=== PATIENT | male | born 1935 ===

== ENCOUNTER 2017-09-05 17:32 | Inpatient (IN) | payer MEDICARE, MEDICAID ==
--- NOTE | 2017-09-05 17:56 | C.PDOC ---
History Of Present Illness Patient presents to ED c/o worsening SOB over the past 1 month. He was seen recently by PMD Dr. Acevedo, Lasix dose was increased from 40mg to 60mg. He states it has not improved his symptoms. Patient admits to dry cough, but denies chest pain, fever, abdominal pain, leg edema. PMHx of CHF, DM, COPD, HTN. Time Seen by Provider: 09/05/17 17:35 Chief Complaint (Nursing): Shortness Of Breath History Per: Patient History/Exam Limitations: no limitations Current Symptoms Are (Timing): Still Present Current Respiratory Medications: See Home Med List Severity: Moderate Past Medical History Reviewed: Historical Data, Nursing Documentation, Vital Signs Vital Signs: Last Vital Signs Temp 97.5 F L 09/09/17 08:19 Pulse 50 L 09/09/17 08:19 Resp 20 09/09/17 08:19 BP 127/85 09/09/17 08:19 Pulse Ox 100 09/09/17 08:19 - Medical History PMH: CHF, COPD, HTN, Hypothyroidism Surgical History: Pacemaker Family History: States: No Known Family Hx - Social History Hx Alcohol Use: No Hx Substance Use: No - Immunization History Hx Tetanus Toxoid Vaccination: No Review Of Systems Except As Marked, All Systems Reviewed And Found Negative. Constitutional: Negative for: Fever, Chills Cardiovascular: Negative for: Chest Pain, Palpitations Respiratory: Positive for: Cough (dry), Shortness of Breath, SOB with Excertion Gastrointestinal: Negative for: Nausea, Vomiting, Abdominal Pain, Diarrhea Skin: Negative for: Rash Neurological: Negative for: Weakness, Numbness Physical Exam - Physical Exam Appears: Well, Non-toxic, No Acute Distress, Other (speaking in full sentences) Oral Mucosa: Moist Chest: Symmetrical, Other (PPM left upper chest) Cardiovascular: Rhythm Regular Respiratory: No Accessory Muscle Use, Rales (B/L bases), No Rhonchi, No Wheezing Gastrointestinal/Abdominal: Normal Exam, Bowel Sounds, Soft, No Tenderness Extremity: Normal ROM, No Pedal Edema, No Calf Tenderness Pulses: Left Dorsalis Pedis: Normal, Right Dorsalis Pedis: Normal Neurological/Psych: Oriented x3 ED Course And Treatment - Laboratory Results Result Diagrams: 09/08/17 11:17 09/08/17 11:17 ECG: Interpreted By Me, Viewed By Me (ventricular paced rhythm 98 bpm, left axis deviation, no acute ST changes) ECG Interpretation: No Acute Changes O2 Sat by Pulse Oximetry: 94 (RA) Pulse Ox Interpretation: Normal (COPD history) - Radiology CXR: Interpreted by Me, Viewed By Me (B/L pulmonary vascular congestion, left sided effusion) Progress Note: Blood work, CXR, EKG ordered and reviewed. BP borderline - as per PMD, this is patient's baseline. No Lasix/nitro given due to BP. - Physician Consult Information Physician Contacted: Skip Acevedo Outcome Of Conversation: Discussed patient with PMD, agress with telemetry admission for acute CHF exacerbation. Disposition - Disposition Disposition: HOSPITALIZED Disposition Time: 19:33 Condition: STABLE - Clinical Impression Clinical Impression: CHF exacerbation, Dyspnea Decision To Admit - Pt Status Changed To: Hospital Disposition Of: Inpatient - Admit Certification Admit to Inpatient:: After my assessment, the patient will require hospitalization for at least two midnights. This is because of the severity of symptoms shown, intensity of services needed, and/or the medical risk in this patient being treated as an outpatient. - InPatient: Physician Admission Certification: I certify that this patient requires 2 or more midnights of care for the following reason:: see notes - . Bed Request Type: Telemetry Admitting Physician: Skip Acevedo Patient Diagnosis: CHF exacerbation, Dyspnea
[2017-09-05 18:29] LABS: BASO # 0.1 K/uL (0.0-0.2); BASO % 1.4 % (0.0-2.0); EOS # 0.2 K/uL (0.0-0.7); EOS % 3.7 % (0.0-4.0); LYMPH # 1.1 K/uL (1.0-4.3); LYMPH % 17.3 % (20.0-40.0); MEAN CELL VOLUME 85.8 fL (80.0-94.0); MEAN CORPUSCULAR HEMOGLOBIN 27.9 pg (27.0-31.0); MEAN CORPUSCULAR HGB CONC 32.5 g/dL (33.0-37.0); MEAN PLATELET VOLUME 7.1 fL (7.2-11.7); MONO # 0.6 K/uL (0.0-0.8); MONO % 8.4 % (0.0-10.0); RED CELL DISTRIBUTION WIDTH 14.5 % (11.5-14.5); WHITE BLOOD COUNT 6.6 K/uL (4.8-10.8)
[2017-09-05 18:47] LABS: CHLORIDE 99 mmol/L (98-107)
[2017-09-05 18:48] LABS: POTASSIUM 3.7 mmol/L (3.6-5.2); SODIUM 133 mmol/L (132-148)
[2017-09-05 18:50] LABS: ALB/GLOB RATIO 1.2 (1.0-2.1); ALKALINE PHOSPHATASE 79 U/L (38-126); AST/SGOT 34 U/L (17-59); BLOOD UREA NITROGEN 19 mg/dL (9-20); CARBON DIOXIDE 23 mmol/L (22-30); GFR AFRICAN-AMERICAN > 60; TOTAL PROTEIN 6.4 g/dL (6.3-8.3)
[2017-09-05 18:51] LABS: ALT/SGPT 36 U/L (21-72); CALCIUM 8.1 mg/dl (8.6-10.4); GLUCOSE,RANDOM 123 mg/dL (75-110)
--- NOTE | 2017-09-05 22:38 | CP.PCM.HP ---
History of Present Illness - History of Present Illness History of Present Illness: CC: shortness of breath HPI: elderly k[place] male with cardiomyopathy, CAD, s/p CABG, COPD,DM complaint with diet med fooloow up, pt is short of breath since few weeks and more on exertion Patient presents to ED c/o worsening SOB over the past 1 month. He was seen recently by me, Lasix dose was increased from 40mg to 60mg. He states it has not improved his symptoms. Patient admits to dry cough, but denies chest pain, fever, abdominal pain, leg edema. PMHx of CHF, DM, COPD, HTN. Present on Admission - Present on Admission Any Indicators Present on Admission: Yes Review of Systems - Review of Systems Systems not reviewed;Unavailable: Unstable Vital Signs - Constitutional Constitutional: Fatigue, Lethargy - Cardiovascular Cardiovascular: Dyspnea, Dyspnea on Exertion, Paroxysmal Nocturnal Dyspnea - Respiratory Respiratory: Cough, Dyspnea, Dyspnea on Exertion - Gastrointestinal Gastrointestinal: absent: As Per HPI, Abdominal Pain, Belching, Bloating, Change in Bowel Habits, Change in Stool Character, Coffee Ground Emesis, Constipation, Cramping, Diarrhea, Dyspepsia, Dysphagia, Early Satiety, Excessive Flatus, Fecal Incontinence, Heartburn, Hematemesis, Hematochezia, Loose Stools, Melena, Nausea, Odynophagia, Temesmus, Vomiting, Other - Genitourinary Genitourinary: absent: As Per HPI, Change in Urinary Stream, Difficulty Urinating, Dysuria, Flank Pain, Hematuria, Pyuria, Nocturia, Urinary Incontinence, Urinary Frequency, Urinary Hesitance, Urinary Urgency, Voiding Freq/Small Amts, Freq UTI, Hx Renal/Bladder Calculi, Hx /Renal Surgery, Bladder Distension, Other Past Patient History - Past Social History Smoking Status: Never Smoked - CARDIAC Hx Congestive Heart Failure: Yes Hx Hypertension: Yes Hx Pacemaker: Yes - PULMONARY Hx Chronic Obstructive Pulmonary Disease (COPD): Yes - ENDOCRINE/METABOLIC Hx Hypothyroidism: Yes - PSYCHIATRIC Hx Substance Use: No Meds Allergies/Adverse Reactions: Allergies Allergy/AdvReac Type Severity Reaction Status Date / Time No Known Allergies Allergy Unverified 09/03/13 16:20 Physical Exam - Constitutional Appears: No Acute Distress - Head Exam Head Exam: ATRAUMATIC, NORMAL INSPECTION, NORMOCEPHALIC - Eye Exam Eye Exam: EOMI, Normal appearance, PERRL Pupil Exam: NORMAL ACCOMODATION, PERRL - Respiratory Exam Respiratory Exam: Decreased Breath Sounds, Rales, Rhonchi - Cardiovascular Exam Cardiovascular Exam: REGULAR RHYTHM, +S1, +S2, Systolic Murmur Additional comments: s3 positive - GI/Abdominal Exam GI & Abdominal Exam: Normal Bowel Sounds, Soft. absent: Tenderness Results - Vital Signs Recent Vital Signs: Last Vital Signs Temp 97.5 F L 09/05/17 20:47 Pulse 98 H 09/05/17 22:35 Resp 20 09/05/17 22:35 BP 108/76 09/05/17 22:35 Pulse Ox 100 09/05/17 22:35 - Labs Result Diagrams: 09/05/17 18:21 09/06/17 16:43 Labs: Laboratory Results - last 24 hr 09/05/17 09/05/17 09/05/17 18:21 18:21 18:21 WBC 6.6 RBC 3.97 L Hgb 11.1 L Hct 34.0 L MCV 85.8 MCH 27.9 MCHC 32.5 L RDW 14.5 Plt Count 310 MPV 7.1 L Neut % (Auto) 69.2 Lymph % (Auto) 17.3 L Keith % (Auto) 8.4 Eos % (Auto) 3.7 Baso % (Auto) 1.4 Neut # 4.6 Lymph # 1.1 Keith # 0.6 Eos # 0.2 Baso # 0.1 PT 11.6 INR 1.0 APTT 30 Sodium 133 Potassium 3.7 Chloride 99 Carbon Dioxide 23 Anion Gap 16 BUN 19 Creatinine 1.1 Est GFR ( Amer) > 60 Est GFR (Non-Af Amer) > 60 Random Glucose 123 H Calcium 8.1 L Total Bilirubin 1.0 AST 34 ALT 36 Alkaline Phosphatase 79 Total Creatine Kinase 90 CK-MB (Mass) 1.74 Troponin I 0.0600 NT-Pro-B Natriuret Pep 7520 H Total Protein 6.4 Albumin 3.5 Globulin 2.9 Albumin/Globulin Ratio 1.2 Assessment & Plan (1) COPD (chronic obstructive pulmonary disease) Status: Acute (2) Diabetes Status: Acute (3) Pulmonary HTN Status: Acute (4) Systolic heart failure Status: Acute - Assessment and Plan (Free Text) Plan: detailed orders written admit pt seen and examined
[2017-09-06] MEDS: Levothyroxine 88 MCG TAB PO SCH (05:36)
[2017-09-06] MEDS: Albuterol-Ipratrop 3 mg / 0.5 (3 ml) UD INH SCH ×4 (05:51→20:01)
[2017-09-06] MEDS ORDERED: (Novolin N) Insulin Human Isophane (NPH) 100 u/ml 10 ml vial SC SCH (07:30)
--- NOTE | 2017-09-06 09:10 | RAD ---
PROCEDURE: CHEST RADIOGRAPH, 1 VIEW HISTORY: SOB COMPARISON: 11/14/2015 FINDINGS: LUNGS: Pulmonary edema, or likely cardiogenic. PLEURA: Bilateral pleural effusions. CARDIOVASCULAR: Cardiomegaly/CHF. OSSEOUS STRUCTURES: No significant abnormalities. VISUALIZED UPPER ABDOMEN: Normal. OTHER FINDINGS: None. IMPRESSION: Congestive heart failure/ pulmonary edema. New findings compared to the prior study 11/14/2015
[2017-09-06] MEDS ORDERED: CLOPIDOGREL 75 MG PO SCH (10:00)
[2017-09-06] MEDS ORDERED: ATORVASTATIN 20 MG PO SCH (10:00)
[2017-09-06] MEDS ORDERED: Enoxaparin 40 mg Syringe SC SCH (10:00)
[2017-09-06] MEDS ORDERED: LANTUS 10 UNIT SQ SCH (10:00)
[2017-09-06] MEDS ORDERED: (Lantus) Insulin Glargine, Recombinant SC SCH ×2 (10:00)
[2017-09-06] MEDS: guaiFENesin 600 mg ER Tab PO SCH ×2 (10:47→19:50)
[2017-09-06] MEDS: Metoprolol Succinate 50 mg XL Tab PO SCH (10:47)
[2017-09-06 12:06] LABS: ABG ALLEN TEST PO; ARTERIAL BLOOD HGB O2 SAT 95.7 % (95.0-98.0); CARBOXYHEMOGLOBIN 0.3 % (0.5-1.5); DRAW SITE LR; HHB 3.9 % (0.0-5.0); METHEMOGLOBIN 0.1 % (0.0-3.0)
[2017-09-06] MEDS: (Novolog) Insulin Aspart, Recombinant 100 u/ml 10 ml vial SC SCH ×4 (12:30→22:26)
[2017-09-06 17:03] LABS: BLOOD UREA NITROGEN 25 mg/dL (9-20); CALCIUM 8.1 mg/dl (8.6-10.4); CARBON DIOXIDE 25 mmol/L (22-30); CHLORIDE 96 mmol/L (98-107); GFR AFRICAN-AMERICAN > 60; GLUCOSE,RANDOM 212 mg/dL (75-110); POTASSIUM 4.2 mmol/L (3.6-5.2); SODIUM 132 mmol/L (132-148)
--- NOTE | 2017-09-06 17:28 | CP.PCM.CON ---
History of Present Illness - History of Present Illness History of Present Illness: h/o increased sob for several weeks cxr with pulmonary edema h/o pulmonary hypertention stable on bosentan for 8 yrs check echo may need a repeat right heart cath for medication adjustments Review of Systems - Constitutional Constitutional: Fatigue - Cardiovascular Cardiovascular: Dyspnea - Respiratory Respiratory: Dyspnea on Exertion Past Patient History - Past Medical History & Family History Past Medical History?: Yes - Past Social History Smoking Status: Never Smoked - CARDIAC Hx Congestive Heart Failure: Yes Hx Hypertension: Yes - PULMONARY Hx Chronic Obstructive Pulmonary Disease (COPD): Yes Other/Comment: pulmonary hypertention - NEUROLOGICAL Hx Neurological Disorder: No - HEENT Hx HEENT Problems: No - RENAL Hx Chronic Kidney Disease: No - ENDOCRINE/METABOLIC Hx Hypothyroidism: Yes - HEMATOLOGICAL/ONCOLOGICAL Hx Blood Disorders: No - INTEGUMENTARY Hx Dermatological Problems: No - MUSCULOSKELETAL/RHEUMATOLOGICAL Hx Musculoskeletal Disorders: No Hx Falls: No - GASTROINTESTINAL Hx Gastrointestinal Disorders: No - GENITOURINARY/GYNECOLOGICAL Hx Genitourinary Disorders: No - PSYCHIATRIC Hx Psychophysiologic Disorder: No Hx Substance Use: No - SURGICAL HISTORY Other/Comment: ppm implant - ANESTHESIA Hx Anesthesia: Yes Hx Anesthesia Reactions: No Hx Malignant Hyperthermia: No Has any member of the family had a problem w/ anesthesia?: No Meds Allergies/Adverse Reactions: Allergies Allergy/AdvReac Type Severity Reaction Status Date / Time No Known Allergies Allergy Unverified 09/03/13 16:20 - Medications Medications: Current Medications Albuterol/Ipratropium (Duoneb 3 Mg/0.5 Mg (3 Ml) Ud) 3 ml INH RQ6 [facility] Last Admin: 09/06/17 13:35 Dose: 3 ml Aspirin (Ecotrin) 81 mg PO DAILY [facility] Last Admin: 09/06/17 10:47 Dose: 81 mg Clopidogrel Bisulfate (Plavix) 75 mg PO DAILY [facility] Last Admin: 09/06/17 10:47 Dose: 75 mg Enoxaparin Sodium (Lovenox) 75 mg SC BID [facility] Furosemide (Lasix) 40 mg IVP BID [facility] Guaifenesin (Mucinex La) 600 mg PO BID [facility] Last Admin: 09/06/17 10:47 Dose: 600 mg Insulin Aspart (Novolog) 0 unit SC ACHS [facility] PRN Reason: Protocol Last Admin: 09/06/17 13:06 Dose: 4 unit Insulin Glargine (Lantus) 15 unit SC [facility] Levothyroxine Sodium (Synthroid) 88 mcg PO DAILY@0630 [facility] Last Admin: 09/06/17 05:36 Dose: 88 mcg Lisinopril (Zestril) 2.5 mg PO DAILY [facility] Last Admin: 09/06/17 10:47 Dose: 2.5 mg Metoprolol Succinate (Toprol Xl) 50 mg PO DAILY [facility] Last Admin: 09/06/17 10:47 Dose: 50 mg Rosuvastatin Calcium (Crestor) 10 mg PO [facility] Physical Exam - Constitutional Appears: Chronically Ill - Head Exam Head Exam: ATRAUMATIC, NORMOCEPHALIC - Eye Exam Eye Exam: Normal appearance - ENT Exam ENT Exam: Mucous Membranes Moist - Respiratory Exam Respiratory Exam: Decreased Breath Sounds, Rales - Cardiovascular Exam Cardiovascular Exam: REGULAR RHYTHM, +S1, +S2 - GI/Abdominal Exam GI & Abdominal Exam: Normal Bowel Sounds - Rectal Exam Rectal Exam: Deferred - Neurological Exam Neurological exam: Alert, Oriented x3 - Psychiatric Exam Psychiatric exam: Normal Affect, Normal Mood - Skin Skin Exam: Intact Results - Vital Signs Recent Vital Signs: Last Vital Signs Temp 97.7 F 09/06/17 15:59 Pulse 102 H 09/06/17 15:59 Resp 22 09/06/17 15:59 BP 93/64 L 09/06/17 15:59 Pulse Ox 97 09/06/17 15:59 - Labs Result Diagrams: 09/05/17 18:21 09/06/17 16:43 Labs: Laboratory Results - last 24 hr 09/05/17 09/05/17 09/05/17 18:21 18:21 18:21 WBC 6.6 RBC 3.97 L Hgb 11.1 L Hct 34.0 L MCV 85.8 MCH 27.9 MCHC 32.5 L RDW 14.5 Plt Count 310 MPV 7.1 L Neut % (Auto) 69.2 Lymph % (Auto) 17.3 L [place] % (Auto) 8.4 Eos % (Auto) 3.7 Baso % (Auto) 1.4 Neut # 4.6 Lymph # 1.1 [place] # 0.6 Eos # 0.2 Baso # 0.1 PT 11.6 INR 1.0 APTT 30 Puncture Site pCO2 pO2 HCO3 ABG pH ABG Total CO2 ABG O2 Saturation ABG Base Excess ABG Hemoglobin ABG Carboxyhemoglobin POC ABG HHb (Measured) ABG Methemoglobin Angel Test A-a O2 Difference Respiratory Index Hgb O2 Saturation Liter Flow FiO2 Sodium 133 Potassium 3.7 Chloride 99 Carbon Dioxide 23 Anion Gap 16 BUN 19 Creatinine 1.1 Est GFR ( Amer) > 60 Est GFR (Non-Af Amer) > 60 POC Glucose (mg/dL) Random Glucose 123 H Calcium 8.1 L Total Bilirubin 1.0 AST 34 ALT 36 Alkaline Phosphatase 79 Total Creatine Kinase 90 CK-MB (Mass) 1.74 Troponin I 0.0600 NT-Pro-B Natriuret Pep 7520 H Total Protein 6.4 Albumin 3.5 Globulin 2.9 Albumin/Globulin Ratio 1.2 09/06/17 09/06/17 09/06/17 06:44 11:20 11:59 WBC RBC Hgb Hct MCV MCH MCHC RDW Plt Count MPV Neut % (Auto) Lymph % (Auto) [place] % (Auto) Eos % (Auto) Baso % (Auto) Neut # Lymph # [place] # Eos # Baso # PT INR APTT Puncture Site Lr pCO2 31 L pO2 119 H HCO3 24.0 ABG pH 7.46 H ABG Total CO2 23.0 ABG O2 Saturation 96.1 ABG Base Excess -1.1 ABG Hemoglobin 12.1 ABG Carboxyhemoglobin 0.3 L POC ABG HHb (Measured) 3.9 ABG Methemoglobin 0.1 Angel Test Po A-a O2 Difference 70.0 Respiratory Index 0.6 Hgb O2 Saturation 95.7 Liter Flow 3.0 FiO2 32.0 Sodium Potassium Chloride Carbon Dioxide Anion Gap BUN Creatinine Est GFR ( Amer) Est GFR (Non-Af Amer) POC Glucose (mg/dL) 177 H 297 H Random Glucose Calcium Total Bilirubin AST ALT Alkaline Phosphatase Total Creatine Kinase CK-MB (Mass) Troponin I NT-Pro-B Natriuret Pep Total Protein Albumin Globulin Albumin/Globulin Ratio 09/06/17 09/06/17 16:37 16:43 WBC RBC Hgb Hct MCV MCH MCHC RDW Plt Count MPV Neut % (Auto) Lymph % (Auto) [place] % (Auto) Eos % (Auto) Baso % (Auto) Neut # Lymph # [place] # Eos # Baso # PT INR APTT Puncture Site pCO2 pO2 HCO3 ABG pH ABG Total CO2 ABG O2 Saturation ABG Base Excess ABG Hemoglobin ABG Carboxyhemoglobin POC ABG HHb (Measured) ABG Methemoglobin Angel Test A-a O2 Difference Respiratory Index Hgb O2 Saturation Liter Flow FiO2 Sodium 132 Potassium 4.2 Chloride 96 L Carbon Dioxide 25 Anion Gap 16 BUN 25 H Creatinine 1.1 Est GFR ( Amer) > 60 Est GFR (Non-Af Amer) > 60 POC Glucose (mg/dL) 228 H Random Glucose 212 H Calcium 8.1 L Total Bilirubin AST ALT Alkaline Phosphatase Total Creatine Kinase CK-MB (Mass) Troponin I NT-Pro-B Natriuret Pep Total Protein Albumin Globulin Albumin/Globulin Ratio Assessment & Plan (1) Pulmonary edema cardiac cause Status: Acute (2) Pulmonary artery hypertension Status: Chronic
[2017-09-06] MEDS: (Lantus) Insulin Glargine, Recombinant SC SCH (22:23)
[2017-09-06] MEDS: Enoxaparin 80 mg Syringe SC SCH (22:25)
[2017-09-06 22:50] VITALS: RESP 20
--- NOTE | 2017-09-06 23:41 | CP.PCM.PN ---
Subjective - Date & Time of Evaluation Date of Evaluation: 09/06/17 Time of Evaluation: 19:00 - Subjective Subjective: CC: shortness of breath HPI: elderly hung[place] male with cardiomyopathy, CAD, s/p CABG, COPD,DM complaint with diet med fooloow up, pt is short of breath since few weeks and more on exertion Objective - Vital Signs/Intake and Output Vital Signs (last 24 hours): Temp Pulse Resp BP Pulse Ox 97.7 F 101 H 20 96/65 L 95 09/06/17 15:59 09/06/17 22:00 09/06/17 22:00 09/06/17 22:24 09/06/17 22:00 Intake and Output: 09/06/17 09/07/17 18:59 06:59 Intake Total 350 Balance 350 - Medications Medications: Current Medications Albuterol/Ipratropium (Duoneb 3 Mg/0.5 Mg (3 Ml) Ud) 3 ml INH RQ6 [facility] Last Admin: 09/06/17 20:01 Dose: 3 ml Aspirin (Ecotrin) 81 mg PO DAILY [facility] Last Admin: 09/06/17 10:47 Dose: 81 mg Clopidogrel Bisulfate (Plavix) 75 mg PO DAILY [facility] Last Admin: 09/06/17 10:47 Dose: 75 mg Enoxaparin Sodium (Lovenox) 75 mg SC BID [facility] Last Admin: 09/06/17 22:25 Dose: 75 mg Furosemide (Lasix) 40 mg IVP BID [facility] Last Admin: 09/06/17 22:24 Dose: 40 mg Guaifenesin (Mucinex La) 600 mg PO BID [facility] Last Admin: 09/06/17 19:50 Dose: 600 mg Insulin Aspart (Novolog) 0 unit SC [facility] PRN Reason: Protocol Last Admin: 09/06/17 22:26 Dose: Not Given Insulin Glargine (Lantus) 15 unit SC HS [facility] Last Admin: 09/06/17 22:23 Dose: 15 u Levothyroxine Sodium (Synthroid) 88 mcg PO DAILY@0630 [facility] Last Admin: 09/06/17 05:36 Dose: 88 mcg Lisinopril (Zestril) 2.5 mg PO DAILY [facility] Last Admin: 09/06/17 10:47 Dose: 2.5 mg Metoprolol Succinate (Toprol Xl) 50 mg PO DAILY [facility] Last Admin: 09/06/17 10:47 Dose: 50 mg Rosuvastatin Calcium (Crestor) 10 mg PO HS [facility] Last Admin: 09/06/17 22:23 Dose: 10 mg - Labs Labs: 09/05/17 18:21 09/06/17 16:43 PT 11.6 SECONDS (9.7-12.2) 09/05/17 18:21 INR 1.0 09/05/17 18:21 APTT 30 SECONDS (21-34) 09/05/17 18:21 - Constitutional Appears: No Acute Distress, Chronically Ill - Head Exam Head Exam: ATRAUMATIC, NORMAL INSPECTION, NORMOCEPHALIC - Eye Exam Eye Exam: EOMI, Normal appearance, PERRL Pupil Exam: NORMAL ACCOMODATION, PERRL - Neck Exam Neck Exam: Full ROM, Normal Inspection. absent: Lymphadenopathy - Respiratory Exam Respiratory Exam: Decreased Breath Sounds, Rales Additional comments: coarse crackles half of lung feilds - Cardiovascular Exam Cardiovascular Exam: +S1, +S2 Additional comments: S3 positive - GI/Abdominal Exam GI & Abdominal Exam: Soft, Normal Bowel Sounds. absent: Tenderness Assessment and Plan (1) Systolic heart failure Assessment & Plan: acute excerberation of systolic herat failure due to ongoing ischemia, rule out [place] Status: Acute (2) Diabetes Status: Acute (3) COPD (chronic obstructive pulmonary disease) Status: Acute (4) Pulmonary HTN Status: Acute - Assessment and Plan (Free Text) Plan: detailed orders written admit pt seen and examined
--- NOTE | 2017-09-07 00:33 | CON ---
CARDIOLOGY CONSULTATION REASON FOR CONSULTATION: Exacerbation of congestive heart failure. 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 The patient has been followed by his focuser, Dr. Clark as an outpatient. The patient repeat that his problem started in 2001 when he had heart attack and was taken to [facility] for coronary intervention and subsequently, he had the ICD placed few years ago. The patient denies any recent discharge of the defibrillator. The patient presented because of shortness of breath and cough. He denies any fever or chills. The patient denies any retrosternal chest pain. SOCIAL HISTORY: The patient is a nonsmoker. MEDICATIONS: Crestor 10 mg once a day, albuterol inhaler q.6 hours, aspirin 81 mg once a day, Lasix 40 mg intravenously twice a day, Lovenox 40 mg subcutaneously once a day, Mucinex 600 mg orally twice a day, Plavix 75 mg once a day, Synthroid 88 mcg once a day, Toprol-XL 50 mg once a day, and Zestril 2.5 mg once a day. REVIEW OF SYSTEMS: No fever or chills. No vomiting or diarrhea. No productive cough. PHYSICAL EXAMINATION: GENERAL: The patient is an elderly male who does not appears to be in acute distress. VITAL SIGNS: Blood pressure 93/64, heart rate 102, temperature 97.7 and respirations 22. HEENT: Normocephalic. CHEST: Absent breath sounds over both bases with scattered bilateral rhonchi. HEART: S1 and S2 regular. S3 gallop is noted. ABDOMEN: Soft. EXTREMITIES: Trace leg edema. LABORATORY DATA AND IMAGING STUDIES: Hemoglobin and hematocrit 11.1 and 34.2. White count and platelet count are within normal limit. INR is 1.0. PT and PTT are within normal limit. SMA-7; sodium 132, potassium 4.2, chloride 96, CO2 of 25, glucose 112, BUN 25, and creatinine 1.1. ProBNP is 7520. First troponin is 0.06. Chest x-ray revealed cardiomegaly, moderate CHF, mild to moderate left pleural effusion, possible right pleural effusion. EKG is not accessible on [employer] database and I could not locate it on Internet at this time of dictating the consult. Neither [employer] nor [employer] can give me the access of the EKG, that is monitored on the chart revealed ventricular paced rhythm. I did review the echocardiogram study while was being done by the lock technician and its revealed dilated and severely hypokinetic left ventricular with moderate right ventricular hypokinesis and left ventricular smoke. ASSESSMENT: 1. Exacerbation of congestive heart failure. 2. Dilated cardiomyopathy, most likely ischemic. The apex is most hypokinetic segment in the 2D echo. 3. Left ventricular smoke. 4. Diabetes mellitus. 5. Hypothyroidism. CONDITIONS: Continue Lasix 40 mg intravenous twice a day, Crestor 10 mg once a day, aspirin 81 mg once a day. Stop the therapeutic dose of subcutaneous Lovenox. Continue Plavix, Toprol-XL and Zestril. If the patient's condition does not significantly improve, I will consider Dobutrex infusion. The case will be discussed with the primary physician, Dr. Skip Acevedo. Josehp Cotton MD
[2017-09-07] MEDS: Albuterol-Ipratrop 3 mg / 0.5 (3 ml) UD INH SCH ×5 (01:44→19:43)
[2017-09-07] MEDS: Levothyroxine 88 MCG TAB PO SCH (06:35)
[2017-09-07 08:02] LABS: BLOOD UREA NITROGEN 32 mg/dL (9-20); CALCIUM 8.4 mg/dl (8.6-10.4); CARBON DIOXIDE 27 mmol/L (22-30); CHLORIDE 96 mmol/L (98-107); GFR AFRICAN-AMERICAN > 60; GLUCOSE,RANDOM 175 mg/dL (75-110); POTASSIUM 3.9 mmol/L (3.6-5.2); SODIUM 133 mmol/L (132-148)
[2017-09-07 08:18] LABS: THYROID STIMULATING HORMONE 3.47 mIU/L (0.46-4.68)
[2017-09-07] MEDS: (Novolog) Insulin Aspart, Recombinant 100 u/ml 10 ml vial SC SCH ×4 (08:55→22:30)
[2017-09-07] MEDS: Metoprolol Succinate 50 mg XL Tab PO SCH (09:21)
[2017-09-07] MEDS: guaiFENesin 600 mg ER Tab PO SCH ×2 (09:21→18:09)
[2017-09-07] MEDS: Enoxaparin 80 mg Syringe SC SCH ×2 (10:56→18:47)
--- NOTE | 2017-09-07 14:01 | CARD ---
APPROVED REPORT EXAM: Two-dimensional and M-mode echocardiogram with Doppler and color Doppler. Other Information Quality : ExcellentRhythm : INDICATION Congestive Heart Failure COPD RISK FACTORS Hypertension Diabetes 2D DIMENSIONS IVSd1.0 (0.7-1.1cm)LVDd6.8 (3.9-5.9cm) LVOT Diameter2.3 (1.8-2.4cm)PWd1.0 (0.7-1.1cm) LVDs5.8 (2.5-4.0cm)FS (%) 15.6 % LVEF (%)20.0 (>50%) M-Mode DIMENSIONS Left Atrium (MM)4.30 (2.5-4.0cm)Aortic Root3.41 (2.2-3.7cm) Aortic Cusp Exc.0.83 (1.5-2.0cm) Aortic Valve AoV Peak Ovfwdxad711.1cm/sAoV VTI24.5cmAO Peak GR.8mmHg LVOT Peak Nbqkvcht14.3cm/sLVOT VTI11.31cmAO Mean GR.5mmHg ZBIGNIEW (VMAX)1.15wd3AOP (VTI)1.90cm2 Mitral Valve E/A ratio0.0 TDI E/Lateral E'0.0E/Medial E'0.0 Tricuspid Valve TR Peak [id number]/sTR Peak Gr.[id number] LEFT VENTRICLE The Left Ventricle is moderately dilated. There is normal left ventricular wall thickness. The systolic function is severely impaired. There is global hypokinesis of the left ventricle. The left ventricular diastolic function is normal. No left ventricle thrombus noted on this study. There is no ventricular septal defect visualized. There is no left ventricular aneurysm. There is no mass noted in the left ventricle. RIGHT VENTRICLE The right ventricle is normal size. There is normal right ventricular wall thickness. ATRIA The left atrium is severely dilated. The right atrium size is normal. AORTIC VALVE The aortic valve is normal in structure. There is mild aortic regurgitation. There is mild to moderate valvular aortic stenosis. Calculated aortic valve area is 1.6 cm2 with maximum pressure gradient of 24 mmHg and mean pressure gradient of 11 mmHg. There is no aortic valvular vegetation. MITRAL VALVE The mitral valve is normal in structure. There is no mitral valve stenosis. Mitral regurgitation is mild. TRICUSPID VALVE The tricuspid valve is normal in structure. There is moderate pulmonary hypertension. PULMONIC VALVE The pulmonary valve is normal in structure. There is mild pulmonic valvular regurgitation. GREAT VESSELS The aortic root is normal in size. The ascending aorta is normal in size. The pulmonary artery is normal. The IVC is normal in size and collapses >50% with inspiration. PERICARDIAL EFFUSION There is no pericardial effusion. <Conclusion> The Left Ventricle is moderately dilated. The systolic function is severely impaired. There is global hypokinesis of the left ventricle. The left atrium is severely dilated. There is mild to moderate valvular aortic stenosis. Calculated aortic valve area is 1.6 cm2 with maximum pressure gradient of 24 mmHg and mean pressure gradient of 11 mmHg. Mitral regurgitation is mild. There is moderate pulmonary hypertension. SEVERE CONGESTIVE CARDIOMYOPATHY WIRH LVEF OF 20%.
--- NOTE | 2017-09-07 21:58 | CP.PCM.PN ---
Subjective - Date & Time of Evaluation Date of Evaluation: 09/07/17 Time of Evaluation: 21:52 - Subjective Subjective: review of echo noted, cardiomyopathy, ef 20 % Will d/c tracleer. Objective - Vital Signs/Intake and Output Vital Signs (last 24 hours): Temp Pulse Resp BP Pulse Ox 97.3 F L 91 H 20 104/73 100 09/07/17 15:16 09/07/17 17:48 09/07/17 17:48 09/07/17 18:12 09/07/17 17:48 Intake and Output: 09/07/17 09/08/17 18:59 06:59 Intake Total 400 Balance 400 - Medications Medications: Current Medications Albuterol/Ipratropium (Duoneb 3 Mg/0.5 Mg (3 Ml) Ud) 3 ml INH RQ6 [facility] Last Admin: 09/07/17 19:43 Dose: 3 ml Aspirin (Ecotrin) 81 mg PO DAILY [facility] Last Admin: 09/07/17 09:21 Dose: 81 mg Clopidogrel Bisulfate (Plavix) 75 mg PO DAILY [facility] Last Admin: 09/07/17 09:21 Dose: 75 mg Enoxaparin Sodium (Lovenox) 75 mg SC BID [facility] Last Admin: 09/07/17 18:47 Dose: 75 mg Furosemide (Lasix) 40 mg IVP BID [facility] Last Admin: 09/07/17 18:12 Dose: 40 mg Guaifenesin (Mucinex La) 600 mg PO BID [facility] Last Admin: 09/07/17 18:09 Dose: 600 mg Insulin Aspart (Novolog) 0 unit SC [facility] PRN Reason: Protocol Last Admin: 09/07/17 17:30 Dose: 8 unit Insulin Glargine (Lantus) 15 unit SC [facility] Last Admin: 09/06/17 22:23 Dose: 15 u Levothyroxine Sodium (Synthroid) 88 mcg PO DAILY@0630 [facility] Last Admin: 09/07/17 06:35 Dose: 88 mcg Lisinopril (Zestril) 2.5 mg PO DAILY [facility] Last Admin: 09/07/17 10:55 Dose: 2.5 mg Metoprolol Succinate (Toprol Xl) 50 mg PO DAILY [facility] Last Admin: 09/07/17 09:21 Dose: 50 mg Rosuvastatin Calcium (Crestor) 10 mg PO HS [facility] Last Admin: 09/06/17 22:23 Dose: 10 mg Spironolactone (Aldactone) 25 mg PO DAILY [facility] Last Admin: 09/07/17 17:50 Dose: 25 mg - Labs Labs: 09/05/17 18:21 09/07/17 07:26 PT 11.6 SECONDS (9.7-12.2) 09/05/17 18:21 INR 1.0 09/05/17 18:21 APTT 30 SECONDS (21-34) 09/05/17 18:21 - Constitutional Appears: No Acute Distress - Head Exam Head Exam: ATRAUMATIC, NORMOCEPHALIC - ENT Exam ENT Exam: Mucous Membranes Moist - Neck Exam Neck Exam: Normal Inspection - Respiratory Exam Respiratory Exam: Decreased Breath Sounds - Cardiovascular Exam Cardiovascular Exam: REGULAR RHYTHM, +S1, +S2 - GI/Abdominal Exam GI & Abdominal Exam: Normal Bowel Sounds - Rectal Exam Rectal Exam: Deferred - Neurological Exam Neurological Exam: Alert, Awake, Oriented x3 - Psychiatric Exam Psychiatric exam: Normal Affect, Normal Mood - Skin Skin Exam: Intact Assessment and Plan (1) Pulmonary edema cardiac cause Status: Acute (2) Systolic heart failure Status: Acute (3) Cardiomyopathy Status: Acute
[2017-09-07] MEDS: (Lantus) Insulin Glargine, Recombinant SC SCH (22:17)
--- NOTE | 2017-09-07 23:08 | CP.PCM.PN ---
Subjective - Date & Time of Evaluation Date of Evaluation: 09/07/17 Time of Evaluation: 19:45 - Subjective Subjective: Patient seen and examined today, awake, more alert today , denies any chest pain , sob , abdominal pain, N/V/D Objective - Vital Signs/Intake and Output Vital Signs (last 24 hours): Temp Pulse Resp BP Pulse Ox 97.3 F L 91 H 20 117/78 100 09/07/17 15:16 09/07/17 17:48 09/07/17 17:48 09/07/17 22:22 09/07/17 17:48 Intake and Output: 09/07/17 09/08/17 18:59 06:59 Intake Total 400 Balance 400 - Medications Medications: Current Medications Albuterol/Ipratropium (Duoneb 3 Mg/0.5 Mg (3 Ml) Ud) 3 ml INH RQ6 [facility] Last Admin: 09/07/17 19:43 Dose: 3 ml Aspirin (Ecotrin) 81 mg PO DAILY [facility] Last Admin: 09/07/17 09:21 Dose: 81 mg Clopidogrel Bisulfate (Plavix) 75 mg PO DAILY [facility] Last Admin: 09/07/17 09:21 Dose: 75 mg Enoxaparin Sodium (Lovenox) 75 mg SC BID [facility] Last Admin: 09/07/17 18:47 Dose: 75 mg Furosemide (Lasix) 40 mg IVP BID [facility] Last Admin: 09/07/17 18:12 Dose: 40 mg Guaifenesin (Mucinex La) 600 mg PO BID [facility] Last Admin: 09/07/17 18:09 Dose: 600 mg Insulin Aspart (Novolog) 0 unit SC [facility] PRN Reason: Protocol Last Admin: 09/07/17 17:30 Dose: 8 unit Insulin Glargine (Lantus) 15 unit SC HS [facility] Last Admin: 09/07/17 22:17 Dose: 15 u Levothyroxine Sodium (Synthroid) 88 mcg PO DAILY@0630 [facility] Last Admin: 09/07/17 06:35 Dose: 88 mcg Lisinopril (Zestril) 2.5 mg PO DAILY [facility] Last Admin: 09/07/17 10:55 Dose: 2.5 mg Metoprolol Succinate (Toprol Xl) 50 mg PO DAILY [facility] Last Admin: 09/07/17 09:21 Dose: 50 mg Rosuvastatin Calcium (Crestor) 10 mg PO HS [facility] Last Admin: 09/07/17 22:18 Dose: 10 mg Spironolactone (Aldactone) 25 mg PO DAILY [facility] Last Admin: 09/07/17 17:50 Dose: 25 mg - Labs Labs: 09/05/17 18:21 09/07/17 07:26 PT 11.6 SECONDS (9.7-12.2) 09/05/17 18:21 INR 1.0 09/05/17 18:21 APTT 30 SECONDS (21-34) 09/05/17 18:21 Assessment and Plan (1) COPD (chronic obstructive pulmonary disease) Status: Acute (2) Diabetes Status: Acute (3) Pulmonary HTN Status: Acute (4) Systolic heart failure Status: Acute - Assessment and Plan (Free Text) Plan: Pt was advised to do cardiac cath and diuresis he opted his water commissioner to do the procedure
[2017-09-08] MEDS: Albuterol-Ipratrop 3 mg / 0.5 (3 ml) UD INH SCH ×4 (01:10→19:30)
[2017-09-08] MEDS: Levothyroxine 88 MCG TAB PO SCH (05:55)
[2017-09-08] MEDS: (Novolog) Insulin Aspart, Recombinant 100 u/ml 10 ml vial SC SCH ×4 (08:00→21:40)
--- NOTE | 2017-09-08 08:48 | CARD ---
APPROVED REPORT EKG Measurement Heart [id number] <Conclusion> Ventricular-paced rhythm with fusion complexes Abnormal ECG
[2017-09-08] MEDS: Enoxaparin 80 mg Syringe SC SCH ×2 (09:39→18:46)
[2017-09-08] MEDS: Metoprolol Succinate 50 mg XL Tab PO SCH (10:00)
[2017-09-08] MEDS: guaiFENesin 600 mg ER Tab PO SCH ×2 (10:03→17:30)
[2017-09-08 11:25] LABS: BASO # 0.1 K/uL (0.0-0.2); BASO % 0.8 % (0.0-2.0); EOS # 0.3 K/uL (0.0-0.7); EOS % 3.7 % (0.0-4.0); HEMATOCRIT 35.5 % (35.0-51.0); LYMPH # 1.3 K/uL (1.0-4.3); LYMPH % 19.1 % (20.0-40.0); MEAN CORPUSCULAR HEMOGLOBIN 28.4 pg (27.0-31.0); MEAN CORPUSCULAR HGB CONC 32.7 g/dL (33.0-37.0); MEAN PLATELET VOLUME 7.7 fL (7.2-11.7); MONO # 0.7 K/uL (0.0-0.8); MONO % 9.9 % (0.0-10.0); NRBC % 0.2 % (0.0-2.0); RED CELL DISTRIBUTION WIDTH 14.8 % (11.5-14.5); WHITE BLOOD COUNT 6.7 K/uL (4.8-10.8)
[2017-09-08 11:44] LABS: GFR AFRICAN-AMERICAN > 60
[2017-09-08 11:59] LABS: BLOOD UREA NITROGEN 42 mg/dL (9-20); CALCIUM 8.3 mg/dl (8.6-10.4); CARBON DIOXIDE 28 mmol/L (22-30); CHLORIDE 96 mmol/L (98-107); GLUCOSE,RANDOM 164 mg/dL (75-110); POTASSIUM 3.5 mmol/L (3.6-5.2); SODIUM 133 mmol/L (132-148)
[2017-09-08] MEDS ORDERED: Potassium Chloride 20 mEq ER Tab PO ONE (16:15)
--- NOTE | 2017-09-08 17:04 | PN ---
FOLLOWUP DATE: SUBJECTIVE: The patient's shortness of breath has improved. He had adequate diuresis. PHYSICAL EXAMINATION: VITAL SIGNS: Blood pressure 116/79, heart rate 105, temperature 97.3, respirations 20. HEENT: Normocephalic. CHEST: Basal rhonchi bilaterally. HEART: S1 and S2 regular. ABDOMEN: Soft. EXTREMITIES: Trace leg edema. LABORATORY DATA: SMA-7: Sodium 133, potassium 3.9, chloride 96, CO2 of 27, glucose 75, BUN 32, creatinine 1.1, TSH level is within normal limits at 3.47. Echocardiography study official report is consistent with severely impaired LV function with global hypokinesis. Moderate valvular aortic stenosis with calculated valve area at 1.6 cm2. Moderate pulmonary hypertension. Ejection fraction estimated at 20%. As per the fan mail editor's evaluation, right heart cath maybe needed for medication adjustment. ASSESSMENT: 1. Dilated cardiomyopathy. 2. Moderate aortic stenosis. 3. Moderate pulmonary hypertension. RECOMMENDATIONS: Continue aspirin 81 mg once a day, Lasix 40 mg intravenous twice a day, therapeutic subcutaneous Lovenox 75 mg once a day, Zestril 2.5 mg once a day. Start Aldactone at 25 mg daily regarding the right heart catheterization and it was presented to the patient; however, the patient elects to wait to see his business support, Dr. Clark as an outpatient and he will see him on Tuesday. The case will thoroughly be discussed with Dr. Skip Acevedo. Joseph Cotton MD
--- NOTE | 2017-09-08 17:44 | CP.PCM.PN ---
Subjective - Date & Time of Evaluation Date of Evaluation: 09/08/17 Time of Evaluation: 17:40 - Subjective Subjective: still sob developed ischemic cardiomyopathy due to longstanding dm and htn d/c tracleer due to LVF Objective - Vital Signs/Intake and Output Vital Signs (last 24 hours): Temp Pulse Resp BP Pulse Ox 97.8 F 97 H 20 112/74 100 09/08/17 15:00 09/08/17 15:00 09/08/17 15:00 09/08/17 15:00 09/08/17 15:00 Intake and Output: 09/08/17 09/08/17 06:59 18:59 Intake Total 240 240 Output Total 400 400 Balance -160 -160 - Medications Medications: Current Medications Albuterol/Ipratropium (Duoneb 3 Mg/0.5 Mg (3 Ml) Ud) 3 ml INH RQ6 [facility] Last Admin: 09/08/17 13:30 Dose: 3 ml Aspirin (Ecotrin) 81 mg PO DAILY [facility] Last Admin: 09/08/17 09:38 Dose: 81 mg Clopidogrel Bisulfate (Plavix) 75 mg PO DAILY [facility] Last Admin: 09/08/17 09:39 Dose: 75 mg Enoxaparin Sodium (Lovenox) 75 mg SC BID [facility] Last Admin: 09/08/17 09:39 Dose: 75 mg Guaifenesin (Mucinex La) 600 mg PO BID [facility] Last Admin: 09/08/17 17:30 Dose: 600 mg Insulin Aspart (Novolog) 0 unit SC [facility] PRN Reason: Protocol Last Admin: 09/08/17 17:30 Dose: 6 unit Insulin Glargine (Lantus) 15 unit SC [facility] Last Admin: 09/07/17 22:17 Dose: 15 u Levothyroxine Sodium (Synthroid) 88 mcg PO DAILY@0630 [facility] Last Admin: 09/08/17 05:55 Dose: 88 mcg Lisinopril (Zestril) 2.5 mg PO DAILY [facility] Last Admin: 09/08/17 10:00 Dose: Not Given Metoprolol Succinate (Toprol Xl) 50 mg PO DAILY [facility] Last Admin: 09/08/17 10:00 Dose: Not Given Potassium Chloride (K-Dur 20 Meq Er Tab) 20 meq PO DAILY [facility] Rosuvastatin Calcium (Crestor) 10 mg PO [facility] Last Admin: 09/07/17 22:18 Dose: 10 mg Spironolactone (Aldactone) 25 mg PO DAILY [facility] Last Admin: 09/08/17 11:00 Dose: Not Given Warfarin Sodium (Coumadin) 5 mg PO 1800 [facility] Stop: 09/08/17 18:01 Last Admin: 09/08/17 17:30 Dose: 5 mg - Labs Labs: 09/08/17 11:17 09/08/17 11:17 PT 11.6 SECONDS (9.7-12.2) 09/05/17 18:21 INR 1.0 09/05/17 18:21 APTT 30 SECONDS (21-34) 09/05/17 18:21 - Constitutional Appears: Chronically Ill - Head Exam Head Exam: ATRAUMATIC, NORMOCEPHALIC - Eye Exam Eye Exam: Normal appearance - ENT Exam ENT Exam: Mucous Membranes Moist - Respiratory Exam Respiratory Exam: Decreased Breath Sounds - Cardiovascular Exam Cardiovascular Exam: REGULAR RHYTHM, +S1, +S2 - GI/Abdominal Exam GI & Abdominal Exam: Normal Bowel Sounds - Rectal Exam Rectal Exam: Deferred - Neurological Exam Neurological Exam: Alert, Oriented x3 - Psychiatric Exam Psychiatric exam: Normal Affect, Normal Mood - Skin Skin Exam: Intact Assessment and Plan (1) Pulmonary edema cardiac cause Status: Acute (2) Systolic heart failure Status: Acute (3) Cardiomyopathy Status: Acute
--- NOTE | 2017-09-08 19:55 | PN ---
SUBJECTIVE: The patient's shortness of breath has improved. He denies any retrosternal chest pain. PHYSICAL EXAMINATION: VITAL SIGNS: Blood pressure 112/74, heart rate 97, temperature 97.8, respirations 20. HEENT: Normocephalic. CHEST: Diminished breath sounds over the bases. HEART: S1 and S2 regular. ABDOMEN: Soft. EXTREMITIES: Trace leg edema. LABORATORY DATA: SMA-7: Sodium 133, potassium 3.5, chloride 96, CO2 of 28, glucose 164, BUN 42, creatinine 1.2. ASSESSMENT: 1. Dilated cardiomyopathy. 2. Moderate pulmonary hypertension. 3. [id number] aortic stenosis with mild aortic insufficiency. RECOMMENDATIONS: Continue Crestor 10 mg once a day, aspirin 81 mg once a day, K-Dur 20 mEq daily, Lovenox 75 mg twice a day, Plavix 75 mg once a day, Toprol-XL 50 mg once a day, Zestril 2.5 mg daily. Change Lasix to 40 mg p.o. twice a day. The patient did received an additional dose of 40 mEq of oral potassium replacement today. Consider initiating Coumadin therapy, if there is no contraindication. Joseph Cotton MD
[2017-09-08] MEDS: (Lantus) Insulin Glargine, Recombinant SC SCH ×2 (21:44→21:47)
--- NOTE | 2017-09-08 22:41 | CP.PCM.PN ---
Subjective - Date & Time of Evaluation Date of Evaluation: 09/08/17 Time of Evaluation: 19:45 - Subjective Subjective: Pt seen and evaluated, less short of breath, less edema and leg swelling Objective - Vital Signs/Intake and Output Vital Signs (last 24 hours): Temp Pulse Resp BP Pulse Ox 97.8 F 96 H 20 112/74 100 09/08/17 15:00 09/08/17 16:00 09/08/17 15:00 09/08/17 15:00 09/08/17 15:00 Intake and Output: 09/08/17 09/09/17 18:59 06:59 Intake Total 240 320 Output Total 400 350 Balance -160 -30 - Medications Medications: Current Medications Albuterol/Ipratropium (Duoneb 3 Mg/0.5 Mg (3 Ml) Ud) 3 ml INH RQ6 [facility] Last Admin: 09/08/17 19:30 Dose: 3 ml Aspirin (Ecotrin) 81 mg PO DAILY [facility] Last Admin: 09/08/17 09:38 Dose: 81 mg Clopidogrel Bisulfate (Plavix) 75 mg PO DAILY [facility] Last Admin: 09/08/17 09:39 Dose: 75 mg Enoxaparin Sodium (Lovenox) 75 mg SC BID [facility] Last Admin: 09/08/17 18:46 Dose: 75 mg Guaifenesin (Mucinex La) 600 mg PO BID [facility] Last Admin: 09/08/17 17:30 Dose: 600 mg Insulin Aspart (Novolog) 0 unit SC [facility] PRN Reason: Protocol Last Admin: 09/08/17 21:40 Dose: Not Given Insulin Glargine (Lantus) 15 unit SC [facility] Last Admin: 09/08/17 21:47 Dose: Not Given Levothyroxine Sodium (Synthroid) 88 mcg PO DAILY@0630 [facility] Last Admin: 09/08/17 05:55 Dose: 88 mcg Lisinopril (Zestril) 2.5 mg PO DAILY [facility] Last Admin: 09/08/17 10:00 Dose: Not Given Metoprolol Succinate (Toprol Xl) 50 mg PO DAILY [facility] Last Admin: 09/08/17 10:00 Dose: Not Given Potassium Chloride (K-Dur 20 Meq Er Tab) 20 meq PO DAILY [facility] Rosuvastatin Calcium (Crestor) 10 mg PO [facility] Last Admin: 09/08/17 21:44 Dose: 10 mg Spironolactone (Aldactone) 25 mg PO DAILY [facility] Last Admin: 09/08/17 11:00 Dose: Not Given - Labs Labs: 09/08/17 11:17 09/08/17 11:17 PT 11.6 SECONDS (9.7-12.2) 09/05/17 18:21 INR 1.0 09/05/17 18:21 APTT 30 SECONDS (21-34) 09/05/17 18:21 - Constitutional Appears: No Acute Distress - Head Exam Head Exam: ATRAUMATIC, NORMAL INSPECTION, NORMOCEPHALIC - Eye Exam Eye Exam: EOMI, Normal appearance, PERRL Pupil Exam: NORMAL ACCOMODATION, PERRL - Respiratory Exam Respiratory Exam: Clear to Ausculation Bilateral, NORMAL BREATHING PATTERN - Cardiovascular Exam Cardiovascular Exam: REGULAR RHYTHM, +S1, +S2. absent: Murmur - GI/Abdominal Exam GI & Abdominal Exam: Soft, Normal Bowel Sounds. absent: Tenderness Assessment and Plan (1) COPD (chronic obstructive pulmonary disease) Status: Acute (2) Diabetes Status: Acute (3) Pulmonary HTN Status: Acute (4) Systolic heart failure Status: Acute - Assessment and Plan (Free Text) Plan: Diuresis
[2017-09-09] MEDS: Albuterol-Ipratrop 3 mg / 0.5 (3 ml) UD INH SCH ×3 (01:07→13:27)
[2017-09-09] MEDS: Levothyroxine 88 MCG TAB PO SCH (05:44)
[2017-09-09 07:52] LABS: INR 1.3
[2017-09-09] MEDS: (Novolog) Insulin Aspart, Recombinant 100 u/ml 10 ml vial SC SCH ×3 (08:25→17:19)
[2017-09-09] MEDS ORDERED: Potassium Chloride 20 mEq ER Tab PO SCH (10:00)
[2017-09-09] MEDS: Enoxaparin 80 mg Syringe SC SCH ×2 (10:02→17:19)
[2017-09-09] MEDS: guaiFENesin 600 mg ER Tab PO SCH ×2 (10:02→17:19)
[2017-09-09] MEDS: Metoprolol Succinate 50 mg XL Tab PO SCH (10:02)
--- NOTE | 2017-09-09 13:12 | PCM.HF ---
Heart Failure Core Measure - Heart Failure Ejection Fraction: Less Than 40 % ANY Inhibitor Prescribed: Yes Beta-Alia Prescribed: Metoprolol Succinate Angiotensin II Receptor Alia Prescribed: No Contraindication/Reason for not providing: on ARB AnticoagulationTherapy for Atrial Fibrillation/Atrialflutter: No Contraindication/Reason for not providing: no hx of a fib Aldosterone Antagonist Prescribed: Yes Hydralazine Nitrate Prescribed: No Contraindication/Reason for not providing: BP running low Implantable Cardioverter Defibrillator Therapy: Yes Cardiac Resynchronization Therapy Prescribed: No Contraindication/Reason for not providing: pt has ICD - Follow up Will be discharged to: Home Follow Up Date (must be within 7 days from discharge): 09/12/17 Follow Up Time: 09:00
--- NOTE | 2017-09-09 13:13 | CP.PCM.PN ---
Subjective - Date & Time of Evaluation Date of Evaluation: 09/09/17 Time of Evaluation: 13:00 - Subjective Subjective: Patient seen and examined today, awake, alert, ox3 denies any chest pain , sob , palpitations, dizziness, N/V spo2 room air - 95-96% and ambulation still remains stable 93% Objective - Vital Signs/Intake and Output Vital Signs (last 24 hours): Temp Pulse Resp BP Pulse Ox 97.5 F L 50 L 20 127/85 100 09/09/17 08:19 09/09/17 08:19 09/09/17 08:19 09/09/17 08:19 09/09/17 08:19 Intake and Output: 09/09/17 09/09/17 06:59 18:59 Intake Total 320 Output Total 550 Balance -230 - Medications Medications: Current Medications Albuterol/Ipratropium (Duoneb 3 Mg/0.5 Mg (3 Ml) Ud) 3 ml INH RQ6 [facility] Last Admin: 09/09/17 07:18 Dose: 3 ml Aspirin (Ecotrin) 81 mg PO DAILY [facility] Last Admin: 09/09/17 10:02 Dose: 81 mg Clopidogrel Bisulfate (Plavix) 75 mg PO DAILY [facility] Last Admin: 09/09/17 10:02 Dose: 75 mg Enoxaparin Sodium (Lovenox) 75 mg SC BID [facility] Last Admin: 09/09/17 10:02 Dose: 75 mg Guaifenesin (Mucinex La) 600 mg PO BID [facility] Last Admin: 09/09/17 10:02 Dose: 600 mg Insulin Aspart (Novolog) 0 unit SC [facility] PRN Reason: Protocol Last Admin: 09/09/17 12:05 Dose: 4 unit Insulin Glargine (Lantus) 15 unit SC HS [facility] Last Admin: 09/08/17 21:47 Dose: Not Given Levothyroxine Sodium (Synthroid) 88 mcg PO DAILY@0630 [facility] Last Admin: 09/09/17 05:44 Dose: 88 mcg Lisinopril (Zestril) 2.5 mg PO DAILY [facility] Last Admin: 09/09/17 10:02 Dose: 2.5 mg Metoprolol Succinate (Toprol Xl) 50 mg PO DAILY [facility] Last Admin: 09/09/17 10:02 Dose: 50 mg Potassium Chloride (K-Dur 20 Meq Er Tab) 20 meq PO DAILY [facility] Last Admin: 09/09/17 10:02 Dose: 20 meq Rosuvastatin Calcium (Crestor) 10 mg PO HS [facility] Last Admin: 09/08/17 21:44 Dose: 10 mg Spironolactone (Aldactone) 25 mg PO DAILY [facility] Last Admin: 09/09/17 10:02 Dose: 25 mg - Labs Labs: 09/08/17 11:17 09/08/17 11:17 PT 14.1 SECONDS (9.7-12.2) H 09/09/17 07:23 INR 1.3 09/09/17 07:23 APTT 30 SECONDS (21-34) 09/05/17 18:21 - Constitutional Appears: Well, No Acute Distress - Respiratory Exam Respiratory Exam: Clear to Ausculation Bilateral, NORMAL BREATHING PATTERN - Cardiovascular Exam Cardiovascular Exam: REGULAR RHYTHM, +S1, +S2 - Neurological Exam Neurological Exam: Alert, Awake, Oriented x3 Assessment and Plan - Assessment and Plan (Free Text) Assessment: A/P 82 yr old male with PMHx of CHF, COPD, HTN, Hypothyroidism, and ICD , admitted for sob and exc. CHF Patient clinically improved with diuresis spo2 - stable - RA 94-96% ECHO- ef 20% discussed with Dr. Clark, his claim administrator, recommends to f/u wiht his office today or Tuesday d/w Dr. Cotton , cleared for discharge home today and f/u with Dr. Clakr his claim administrator on Tuesday D/W with Dr. Acevedo, stable for discharge home today and f/u with Dr. Acevedo office next week Discharge plan discussed with patient , who understands and agrees with plan
[2017-09-09 16:36] VITALS: BP 100/68; TEMP 97.1; O2SAT 97
--- NOTE | 2017-09-09 16:59 | PN ---
DATE: SUBJECTIVE: Patient's shortness of breath has improved. No reports of ventricular arrhythmia. He denies any cough or dizziness. PHYSICAL EXAMINATION: VITAL SIGNS: Blood pressure 127/85, heart rate 60, temperature 97.5, respirations 20. HEENT: Head normocephalic. CHEST: Clear. HEART: S1 and S2, regular. EXTREMITIES: No edema. LABORATORY DATA: Today's, blood sugars are 174 and 292 respectively. ASSESSMENT: 1. Dilated cardiomyopathy. 2. Moderate pulmonary hypertension. 3. [id number] valvular aortic stenosis. RECOMMENDATIONS: Continue Aldactone 25 mg once a day, Crestor 10 mg once a day, aspirin 81 mg once a day, subcutaneous Lovenox 75 mg once a day, Synthroid 88 mcg once a day, Zestril 2.5 mg once a day, Toprol-XL 50 mg once a day. Today's INR is 1.3 and I will administer Coumadin 5 mg orally today. The patient can be discharged on Coumadin 2 mg orally daily and he will be followed Tuesday by his cnc maintenance mechanic, Dr. Clark, as an outpatient. The supply of Coumadin should not exceed one week supply to ensure the patient follow up with his primary cnc maintenance mechanic. Joseph Cotton MD
--- NOTE | 2017-09-09 23:05 | CP.PCM.DIS ---
Provider - Provider Date of Admission: 09/05/17 19:33 Attending physician: Skip Acevedo MD Time Spent in preparation of Discharge (in minutes): 45 Diagnosis - Discharge Diagnosis (1) COPD (chronic obstructive pulmonary disease) Status: Acute (2) Diabetes Status: Acute (3) Pulmonary HTN Status: Acute (4) Systolic heart failure Status: Acute Hospital Course - Lab Results Lab Results: Micro Results 09/05/17 18:10 Blood Blood Culture - Preliminary NO GROWTH AFTER 4 DAYS 09/05/17 18:55 Blood Blood Culture - Preliminary NO GROWTH AFTER 4 DAYS Most Recent Lab Values WBC 6.7 K/uL (4.8-10.8) 09/08/17 11:17 RBC 4.08 Mil/uL (4.40-5.90) L 09/08/17 11:17 Hgb 11.6 g/dL (12.0-18.0) L 09/08/17 11:17 Hct 35.5 % (35.0-51.0) 09/08/17 11:17 MCV 87.0 fL (80.0-94.0) 09/08/17 11:17 MCH 28.4 pg (27.0-31.0) 09/08/17 11:17 MCHC 32.7 g/dL (33.0-37.0) L 09/08/17 11:17 RDW 14.8 % (11.5-14.5) H 09/08/17 11:17 Plt Count 279 K/uL (130-400) 09/08/17 11:17 MPV 7.7 fL (7.2-11.7) 09/08/17 11:17 Neut % (Auto) 66.5 % (50.0-75.0) 09/08/17 11:17 Lymph % (Auto) 19.1 % (20.0-40.0) L 09/08/17 11:17 [place] % (Auto) 9.9 % (0.0-10.0) 09/08/17 11:17 Eos % (Auto) 3.7 % (0.0-4.0) 09/08/17 11:17 Baso % (Auto) 0.8 % (0.0-2.0) 09/08/17 11:17 Neut # 4.5 K/uL (1.8-7.0) 09/08/17 11:17 Lymph # 1.3 K/uL (1.0-4.3) 09/08/17 11:17 [place] # 0.7 K/uL (0.0-0.8) 09/08/17 11:17 Eos # 0.3 K/uL (0.0-0.7) 09/08/17 11:17 Baso # 0.1 K/uL (0.0-0.2) 09/08/17 11:17 PT 14.1 SECONDS (9.7-12.2) H 09/09/17 07:23 INR 1.3 09/09/17 07:23 APTT 30 SECONDS (21-34) 09/05/17 18:21 Puncture Site Lr 09/06/17 11:59 pCO2 31 mm/Hg (35-45) L 09/06/17 11:59 pO2 119 mm/Hg (80-100) H 09/06/17 11:59 HCO3 24.0 mmol/L (21-28) 09/06/17 11:59 ABG pH 7.46 (7.35-7.45) H 09/06/17 11:59 ABG Total CO2 23.0 mmol/L (22-28) 09/06/17 11:59 ABG O2 Saturation 96.1 % (95-98) 09/06/17 11:59 ABG Base Excess -1.1 mmol/L (-2.0-3.0) 09/06/17 11:59 ABG Hemoglobin 12.1 g/dL (11.7-17.4) 09/06/17 11:59 ABG Carboxyhemoglobin 0.3 % (0.5-1.5) L 09/06/17 11:59 POC ABG HHb (Measured) 3.9 % (0.0-5.0) 09/06/17 11:59 ABG Methemoglobin 0.1 % (0.0-3.0) 09/06/17 11:59 Angel Test Po 09/06/17 11:59 A-a O2 Difference 70.0 mm/Hg 09/06/17 11:59 Respiratory Index 0.6 09/06/17 11:59 Hgb O2 Saturation 95.7 % (95.0-98.0) 09/06/17 11:59 Liter Flow 3.0 09/06/17 11:59 FiO2 32.0 % 09/06/17 11:59 Sodium 133 mmol/L (132-148) 09/08/17 11:17 Potassium 3.5 mmol/L (3.6-5.2) L 09/08/17 11:17 Chloride 96 mmol/L (98-107) L 09/08/17 11:17 Carbon Dioxide 28 mmol/L (22-30) 09/08/17 11:17 Anion Gap 12 (10-20) 09/08/17 11:17 BUN 42 mg/dL (9-20) H 09/08/17 11:17 Creatinine 1.2 mg/dL (0.8-1.5) 09/08/17 11:17 Est GFR ( Amer) > 60 09/08/17 11:17 Est GFR (Non-Af Amer) 58 09/08/17 11:17 POC Glucose (mg/dL) 179 mg/dL (65-110) H 09/09/17 16:11 Random Glucose 164 mg/dL (75-110) H 09/08/17 11:17 Calcium 8.3 mg/dl (8.6-10.4) L 09/08/17 11:17 Total Bilirubin 1.0 mg/dL (0.2-1.3) 09/05/17 18:21 AST 34 U/L (17-59) 09/05/17 18:21 ALT 36 U/L (21-72) 09/05/17 18:21 Alkaline Phosphatase 79 U/L (38-126) 09/05/17 18:21 Total Creatine Kinase 90 U/L (55-170) 09/05/17 18:21 CK-MB (Mass) 1.74 ng/mL (0.0-3.38) 09/05/17 18:21 Troponin I 0.0600 ng/mL (0.00-0.120) 09/05/17 18:21 NT-Pro-B Natriuret Pep 7520 pg/mL (0-900) H 09/05/17 18:21 Total Protein 6.4 g/dL (6.3-8.3) 09/05/17 18:21 Albumin 3.5 g/dL (3.5-5.0) 09/05/17 18:21 Globulin 2.9 gm/dL (2.2-3.9) 09/05/17 18:21 Albumin/Globulin Ratio 1.2 (1.0-2.1) 09/05/17 18:21 TSH 3rd Generation 3.47 mIU/L (0.46-4.68) 09/07/17 07:26 - Hospital Course Hospital Course: A/P 82 yr old male with PMHx of CHF, COPD, HTN, Hypothyroidism, and ICD , admitted for sob and exc. CHF Patient clinically improved with diuresis spo2 - stable - RA 94-96% ECHO- ef 20% discussed with Dr. Calrk, his pen or pencil assembly machine operator, recommends to f/u wiht his office today or Tuesday d/w Dr. Cotton , cleared for discharge home today and f/u with Dr. Clark his pen or pencil assembly machine operator on Tuesday Pt is stable for discharge home today and f/u with nc office next week Discharge plan discussed with patient , who understands and agrees with plan Discharge Exam - Head Exam Head Exam: ATRAUMATIC, NORMAL INSPECTION, NORMOCEPHALIC - Eye Exam Eye Exam: Normal appearance, PERRL - Respiratory Exam Respiratory Exam: Clear to PA & Lateral, NORMAL BREATHING PATTERN - Cardiovascular Exam Cardiovascular Exam: REGULAR RHYTHM, +S1, +S2 - GI/Abdominal Exam GI & Abdominal Exam: Normal Bowel Sounds Discharge Plan - Discharge Medications Prescriptions: Spironolactone [Aldactone] 25 mg PO DAILY #30 tab Warfarin [Coumadin] 2 mg PO 1800 #7 tab Furosemide [Lasix] 40 mg PO BID #30 tablet Lisinopril [Zestril] 2.5 mg PO DAILY #30 tab - Follow Up Plan Condition: STABLE Disposition: HOME/ ROUTINE Instructions: Spironolactone (By mouth), Lisinopril (By mouth), Furosemide (By mouth), Warfarin (By mouth), Heart Failure (DC), Heart Healthy Diet (DC), COPD ( Chronic Obstructive Pulmonary Disease) (DC) Additional Instructions: Please f/u with Dr. Clark office today or Tuesday Please f/u with Dr. Acevedo office in 1 week Continue medication as per Med. REc. Continue PT as out patient PLEASE CHECK WITH DR. CLARK NEEDS COUMADIN THERAPY Referrals: Skip Acevedo MD [Staff Provider] -
[2017-09-10 00:01] VITALS: PULSE 96
== END 2017-09-09 18:56 | disposition home or self-care (01) | DRG 293 ==
LOC: C.ER 17:32 → C.9E 19:33 → C.6T 22:56
PROVIDERS: ADMIT Internal Medicine; ATTEND Internal Medicine
DX: I11.0 Hypertensive heart disease with heart failure (principal); J44.9 Chronic obstructive pulmonary disease, unspecified; E11.9 Type 2 diabetes mellitus without complications; I25.5 Ischemic cardiomyopathy; I35.2 Nonrheumatic aortic (valve) stenosis with insufficiency; I25.10 Atherosclerotic heart disease of native coronary artery without angina pectoris; Z95.1 Presence of aortocoronary bypass graft; I50.23 Acute on chronic systolic (congestive) heart failure; E03.9 Hypothyroidism, unspecified; I25.2 Old myocardial infarction; I27.20 Pulmonary hypertension, unspecified; Z79.82 Long term (current) use of aspirin; Z79.899 Other long term (current) drug therapy; Z95.810 Presence of automatic (implantable) cardiac defibrillator